=== PATIENT | male | born 1975 | race Hispanic/Latino ===

== ENCOUNTER 2019-03-14 06:55 | Emergency (ER) | payer MEDICARE ==
[2019-03-14] MEDS ORDERED: ONDANSETRON 4 MG ODT TAB PO ONE (11:36)
[2019-03-14] MEDS ORDERED: ONDANSETRON 4 MG ODT TAB ONE (11:36)
[2019-03-14] MEDS ORDERED: HYDROcodone/ACETAMINOPHEN 5-325 MG TAB PO ONE (11:37)
--- NOTE | 2019-03-14 11:46 | Emergency Department Report ---
ED ENT HPI - General Chief complaint: Dental/Oral Stated complaint: JAW SWOLLEN Time Seen by Provider: 03/14/19 11:25 Source: patient Mode of arrival: Ambulatory Limitations: No Limitations - History of Present Illness Initial comments: Mr. Olivares is a very pleasant 43-year-old male with history of diabetes mellitus and end-stage renal disease on dialysis who presents with right jaw pain swelling and dental pain. Pain and swelling has been present for several days. Has not had dental care several years. Denies fever. Denies shortness of breath. Able to swallow. MD complaint: tooth pain, other (right jaw swelling) -: Gradual, days(s) (several days) Severity: moderate Severity scale (0 -10): 7 Quality: aching Consistency: constant Improves with: none Worsens with: none Context- Dental: poor dental care Associated Symptoms: denies: pain with swallowing, sore throat, tinnitus - Related Data Home Medications Medication Instructions Recorded Confirmed Last Taken Insulin NPH/Regular [NovoLIN 70/30] 10 unit SUB-Q QAM 04/26/15 07/30/15 07/30/15 Insulin NPH/Regular [NovoLIN 70/30] 10 unit SUB-Q QPM 04/26/15 07/31/15 07/30/15 20:30 Ergocalciferol [Vitamin D2] 1 cap PO QWEEK 07/30/15 07/30/15 07/30/15 Furosemide [Lasix TAB] 80 mg PO QDAY 07/30/15 07/31/15 07/29/15 Losartan [Cozaar] 50 mg PO QDAY 07/30/15 07/30/15 07/31/15 07:00 Metoprolol [Lopressor TAB] 25 mg PO BID 07/30/15 07/30/15 07/31/15 07:00 Vit B Complx C/Folic Acid/Zinc 0.8 mg PO DAILY 07/30/15 07/30/15 07/30/15 [Dialyvite 800-Zinc 50 mg Tab] Previous Rx's Medication Instructions Recorded Last Taken Type HYDROcodone/APAP 7.5-325 [[place] 1 each PO Q6HR PRN #40 tablet 07/31/15 Unknown Rx 7.5/325] Clindamycin [Clindamycin CAP] 300 mg PO TID 10 Days #30 cap 03/14/19 Unknown Rx HYDROcodone/APAP 5-325 [[place] 1 each PO Q6HR PRN #10 tablet 03/14/19 Unknown Rx 5/325] Ondansetron [Zofran Odt] 4 mg PO Q8HR PRN #10 tab.rapdis 03/14/19 Unknown Rx Allergies Allergy/AdvReac Type Severity Reaction Status Date / Time No Known Allergies Allergy Verified 07/30/15 10:14 ED Dental HPI - General Chief complaint: Dental/Oral Stated complaint: JAW SWOLLEN Time Seen by Provider: 03/14/19 11:25 Source: patient Mode of arrival: Ambulatory Limitations: No Limitations - Related Data Home Medications Medication Instructions Recorded Confirmed Last Taken Insulin NPH/Regular [NovoLIN 70/30] 10 unit SUB-Q QAM 04/26/15 07/30/15 07/30/15 Insulin NPH/Regular [NovoLIN 70/30] 10 unit SUB-Q QPM 04/26/15 07/31/15 07/30/15 20:30 Ergocalciferol [Vitamin D2] 1 cap PO QWEEK 07/30/15 07/30/15 07/30/15 Furosemide [Lasix TAB] 80 mg PO QDAY 07/30/15 07/31/15 07/29/15 Losartan [Cozaar] 50 mg PO QDAY 07/30/15 07/30/15 07/31/15 07:00 Metoprolol [Lopressor TAB] 25 mg PO BID 07/30/15 07/30/15 07/31/15 07:00 Vit B Complx C/Folic Acid/Zinc 0.8 mg PO DAILY 07/30/15 07/30/15 07/30/15 [Dialyvite 800-Zinc 50 mg Tab] Previous Rx's Medication Instructions Recorded Last Taken Type HYDROcodone/APAP 7.5-325 [[place] 1 each PO Q6HR PRN #40 tablet 07/31/15 Unknown Rx 7.5/325] Clindamycin [Clindamycin CAP] 300 mg PO TID 10 Days #30 cap 03/14/19 Unknown Rx HYDROcodone/APAP 5-325 [[place] 1 each PO Q6HR PRN #10 tablet 03/14/19 Unknown Rx 5/325] Ondansetron [Zofran Odt] 4 mg PO Q8HR PRN #10 tab.rapdis 03/14/19 Unknown Rx Allergies Allergy/AdvReac Type Severity Reaction Status Date / Time No Known Allergies Allergy Verified 07/30/15 10:14 ED Review of Systems ROS: Stated complaint: JAW SWOLLEN Other details as noted in HPI Constitutional: denies: fever, malaise ENT: dental pain. denies: throat pain Respiratory: denies: shortness of breath Gastrointestinal: denies: abdominal pain ED Past Medical Hx - Past Medical History Previous Medical History?: Yes Hx Hypertension: Yes Hx Congestive Heart Failure: No Hx Diabetes: Yes (IDDM 2011) Hx Renal Disease: Yes (RECENT HOSP 04/2015) Hx Asthma: No Hx COPD: No Hx HIV: No - Surgical History Past Surgical History?: Yes Additional Surgical History: left BKA - Social History Smoking Status: Unknown if ever smoked Substance Use Type: None - Medications Home Medications: Home Medications Medication Instructions Recorded Confirmed Last Taken Type Insulin NPH/Regular [NovoLIN 70/30] 10 unit SUB-Q QAM 04/26/15 07/30/15 07/30/15 History Insulin NPH/Regular [NovoLIN 70/30] 10 unit SUB-Q QPM 04/26/15 07/31/15 07/30/15 20:30 History Ergocalciferol [Vitamin D2] 1 cap PO QWEEK 07/30/15 07/30/15 07/30/15 History Furosemide [Lasix TAB] 80 mg PO QDAY 07/30/15 07/31/15 07/29/15 History Losartan [Cozaar] 50 mg PO QDAY 07/30/15 07/30/15 07/31/15 07:00 History Metoprolol [Lopressor TAB] 25 mg PO BID 07/30/15 07/30/15 07/31/15 07:00 History Vit B Complx C/Folic Acid/Zinc 0.8 mg PO DAILY 07/30/15 07/30/15 07/30/15 History [Dialyvite 800-Zinc 50 mg Tab] HYDROcodone/APAP 7.5-325 [[place] 1 each PO Q6HR PRN #40 tablet 07/31/15 Unknown Rx 7.5/325] Clindamycin [Clindamycin CAP] 300 mg PO TID 10 Days #30 cap 03/14/19 Unknown Rx HYDROcodone/APAP 5-325 [[place] 1 each PO Q6HR PRN #10 tablet 03/14/19 Unknown Rx 5/325] Ondansetron [Zofran Odt] 4 mg PO Q8HR PRN #10 tab.rapdis 03/14/19 Unknown Rx ED Physical Exam - General Limitations: No Limitations General appearance: alert, in no apparent distress, other (no work of breathing) - Head Head exam: Present: other (right mandibular swelling extending to cheek, ) - ENT ENT exam: Present: other (able to open mouth 3 fingerwidths diffuse teeth decay lower right gum ridge no stridor) - Neck Neck exam: Present: normal inspection, full ROM, other (no neck sweling). Absent: tenderness, meningismus - Extremities Exam Extremities exam: Present: normal inspection - Neurological Exam Neurological exam: Present: alert, oriented X3 - Psychiatric Psychiatric exam: Present: normal affect, normal mood - Skin Skin exam: Present: warm, dry, intact, normal color ED Medical Decision Making - Medical Decision Making Odontogenic infection with extension to face jaw: no respiratory compromise rx: penicillin V, zofran, norco Critical care attestation.: If time is entered above; I have spent that time in minutes in the direct care of this critically ill patient, excluding procedure time. ED Disposition Clinical Impression: Infected dental caries, Facial cellulitis Disposition: TO HOME OR SELFCARE Is pt being admited?: No Does the pt Need Aspirin: No Condition: Stable Instructions: Dental Abscess (ED) Prescriptions: Clindamycin [Clindamycin CAP] 300 mg PO TID 10 Days #30 cap HYDROcodone/APAP 5-325 [[place] 5/325] 1 each PO Q6HR PRN #10 tablet PRN Reason: Pain Ondansetron [Zofran Odt] 4 mg PO Q8HR PRN #10 tab.rapdis PRN Reason: Nausea Referrals: [facility] [Outside] - 3-5 Days [facility] [Outside] - 3-5 Days
[2019-03-14] MEDS ORDERED: PENICILLIN V POTASSIUM 250 MG TAB PO ONE (12:00)
[2019-03-14 12:18] VITALS: BP 214/115
== END 2019-03-14 12:28 | disposition home or self-care (01) ==
LOC: ED 06:55
DX: L03.211 Cellulitis of face (principal); K02.9 Dental caries, unspecified; I10 Essential (primary) hypertension; E11.9 Type 2 diabetes mellitus without complications; Z79.4 Long term (current) use of insulin; Z79.899 Other long term (current) drug therapy
CPT/HCPCS: Q0162